=== PATIENT | female | born 1945 | race Two or more races ===

== ENCOUNTER 2018-03-22 12:36 | Outpatient (CLI) | payer OTHER | END 2018-03-22 14:49 | disposition home or self-care (01) | LOC: MAMO-SONO 12:36 | DX: Z12.31 Encounter for screening mammogram for malignant neoplasm of breast (principal); Z87.898 Personal history of other specified conditions ==

== ENCOUNTER 2018-03-31 12:46 | Outpatient (CLI) | payer OTHER | END 2018-03-31 12:55 | disposition home or self-care (01) | LOC: NUCLEAR 12:46 | DX: M85.80 Other specified disorders of bone density and structure, unspecified site (principal); M81.0 Age-related osteoporosis without current pathological fracture ==

== ENCOUNTER 2019-04-03 12:44 | Outpatient (CLI) | payer OTHER | END 2019-04-03 12:55 | disposition home or self-care (01) | LOC: MAMO-SONO 12:44 | DX: Z12.31 Encounter for screening mammogram for malignant neoplasm of breast (principal); Z87.898 Personal history of other specified conditions; N64.4 Mastodynia; R10.2 Pelvic and perineal pain; Z09 Encounter for follow-up examination after completed treatment for conditions other than malignant neoplasm ==

== ENCOUNTER 2020-01-18 09:09 | Outpatient (CLI) | payer OTHER | END 2020-01-18 09:19 | disposition home or self-care (01) | LOC: MRI 09:09 | PROVIDERS: ATTEND Psychiatry & Neurology Clinical Neurophysiology | DX: I65.22 Occlusion and stenosis of left carotid artery (principal) | CPT/HCPCS: 70548; A9575 ==

== ENCOUNTER 2020-03-21 13:23 | Outpatient (CLI) | payer OTHER | END 2020-03-21 13:30 | disposition home or self-care (01) | LOC: RAD 13:23 | PROVIDERS: ATTEND Physical Medicine & Rehabilitation | DX: M17.12 Unilateral primary osteoarthritis, left knee (principal); M54.5 Low back pain ==

== ENCOUNTER 2020-04-15 10:27 | Outpatient (CLI) | payer OTHER | END 2020-04-15 10:37 | disposition home or self-care (01) | LOC: MRI 10:27 | PROVIDERS: ATTEND Physical Medicine & Rehabilitation | DX: M43.17 Spondylolisthesis, lumbosacral region (principal); M54.16 Radiculopathy, lumbar region; M54.5 Low back pain | CPT/HCPCS: 72148 ==

== ENCOUNTER 2020-04-25 13:58 | Outpatient (CLI) | payer OTHER | END 2020-04-25 15:07 | disposition home or self-care (01) | LOC: NUCLEAR 13:58 | PROVIDERS: ATTEND Obstetrics & Gynecology | DX: M81.0 Age-related osteoporosis without current pathological fracture (principal) ==

== ENCOUNTER 2020-06-23 10:42 | Outpatient (CLI) | payer OTHER | END 2020-06-23 11:02 | disposition home or self-care (01) | LOC: RAD 10:42 | PROVIDERS: ATTEND Physical Medicine & Rehabilitation | DX: D25.1 Intramural leiomyoma of uterus (principal); M17.12 Unilateral primary osteoarthritis, left knee; M25.562 Pain in left knee; Z12.31 Encounter for screening mammogram for malignant neoplasm of breast; N64.59 Other signs and symptoms in breast; M23.222 Derangement of posterior horn of medial meniscus due to old tear or injury, left knee; M17.0 Bilateral primary osteoarthritis of knee; N64.4 Mastodynia; R10.2 Pelvic and perineal pain | CPT/HCPCS: 73721 ==

== ENCOUNTER 2020-10-31 09:28 | Outpatient (CLI) | payer OTHER | END 2020-10-31 09:53 | disposition home or self-care (01) | LOC: SONOGRAMA 09:28 → MAMO-SONO 09:30 → SONOGRAMA 09:53 | DX: N28.89 Other specified disorders of kidney and ureter (principal) ==

== ENCOUNTER 2020-12-26 11:13 | Outpatient (CLI) | payer OTHER | END 2020-12-26 12:11 | disposition home or self-care (01) | LOC: RAD 11:13 | PROVIDERS: ATTEND Orthopaedic Surgery | DX: M25.561 Pain in right knee (principal) ==

== ENCOUNTER 2021-07-06 09:30 | Outpatient (CLI) | payer OTHER | END 2021-07-06 09:48 | disposition home or self-care (01) | LOC: MAMO-SONO 09:30 | DX: Z12.31 Encounter for screening mammogram for malignant neoplasm of breast (principal); Z87.898 Personal history of other specified conditions; N64.89 Other specified disorders of breast; D25.9 Leiomyoma of uterus, unspecified ==

== ENCOUNTER 2022-04-16 11:17 | Outpatient (CLI) | payer OTHER | END 2022-04-16 11:26 | disposition home or self-care (01) | LOC: RAD 11:17 | PROVIDERS: ATTEND Physical Medicine & Rehabilitation | DX: M25.562 Pain in left knee (principal) ==

== ENCOUNTER 2022-06-03 14:49 | Outpatient (CLI) | payer OTHER | END 2022-06-03 14:52 | disposition home or self-care (01) | LOC: MRI 14:49 | PROVIDERS: ATTEND Physical Medicine & Rehabilitation | DX: M25.562 Pain in left knee (principal) | CPT/HCPCS: 73721 ==

== ENCOUNTER 2022-08-02 10:53 | Outpatient (CLI) | payer OTHER | END 2022-08-02 14:19 | disposition home or self-care (01) | LOC: MAMO-SONO 10:53 | DX: N64.4 Mastodynia (principal) ==

== ENCOUNTER 2022-08-05 14:04 | Outpatient (CLI) | payer OTHER | END 2022-08-05 14:05 | disposition home or self-care (01) | LOC: NUCLEAR 14:04 | PROVIDERS: ATTEND Obstetrics & Gynecology | DX: M81.0 Age-related osteoporosis without current pathological fracture (principal) ==

== ENCOUNTER 2023-08-08 13:41 | Outpatient (CLI) | payer OTHER | END 2023-08-08 13:46 | disposition home or self-care (01) | LOC: MAMO-SONO 13:41 | PROVIDERS: ATTEND Family Medicine | DX: D25.9 Leiomyoma of uterus, unspecified (principal); Z12.31 Encounter for screening mammogram for malignant neoplasm of breast ==

== ENCOUNTER 2024-01-03 11:39 | Outpatient (CLI) | payer OTHER | END 2024-01-03 11:47 | disposition home or self-care (01) | LOC: RAD 11:39 | DX: M25.562 Pain in left knee (principal) ==

== ENCOUNTER 2024-08-20 12:48 | Outpatient (CLI) | payer OTHER | END 2024-08-20 12:49 | disposition home or self-care (01) | LOC: NUCLEAR 12:48 | PROVIDERS: ATTEND Family Medicine | DX: M81.0 Age-related osteoporosis without current pathological fracture (principal) ==

== ENCOUNTER 2024-08-27 14:07 | Outpatient (CLI) | payer OTHER | END 2024-08-27 14:10 | disposition home or self-care (01) | LOC: MAMO-SONO 14:07 | PROVIDERS: ATTEND Family Medicine | DX: N60.11 Diffuse cystic mastopathy of right breast (principal); N60.12 Diffuse cystic mastopathy of left breast; Z12.39 Encounter for other screening for malignant neoplasm of breast; Z12.31 Encounter for screening mammogram for malignant neoplasm of breast; D25.9 Leiomyoma of uterus, unspecified ==

== ENCOUNTER 2025-04-22 12:13 | Outpatient (CLI) | payer OTHER | END 2025-04-22 12:15 | disposition home or self-care (01) | LOC: RAD 12:13 | PROVIDERS: ATTEND Family Medicine | DX: M25.561 Pain in right knee (principal); M95.0 Acquired deformity of nose; R22.9 Localized swelling, mass and lump, unspecified; M25.562 Pain in left knee ==